=== PATIENT | male | born 1980 | race Caucasian/White ===

== ENCOUNTER 2022-08-18 06:24 | Emergency (ER) | payer OTHER ==
[~2022-08-18] VITALS: Ht 182.9 cm; Wt 102.3 kg
[2022-08-18 06:25] VITALS: BP 159/94
[2022-08-18] MEDS ORDERED: IBUPROFEN 600MG TAB PO ONE (07:25)
[2022-08-18] MEDS ORDERED: ACETAMINOPHEN TAB 650MG DOSE (2X325MG) PO ONE (07:25)
[2022-08-18] MEDS ORDERED: AUGMENTIN 875 MG TAB PO ONE (07:25)
[2022-08-18] MEDS ORDERED: AMOX875T2 PO (07:30)
[2022-08-18] MEDS ORDERED: IBUP-1022 PO (07:34)
== END 2022-08-18 07:39 | disposition home or self-care (01) ==
LOC: M ED 06:24
DX: H66.001 Acute suppurative otitis media without spontaneous rupture of ear drum, right ear (principal)